=== PATIENT | female | born 1995 | race African-American/Black ===

== ENCOUNTER 2020-12-11 13:32 | Outpatient (REF) | payer OTHER, SELFPAY ==
[2020-12-11 16:36] LABS: MANUAL DIFF FLAG NO
[2020-12-11 16:41] LABS: Basophils Absolute Auto 0.1 X10*3/uL (0.0-0.2); Eosinophils Percent Auto 0.6 % (0-4); Hematocrit 34.2 % (37-47); Hemoglobin 10.6 g/dl (12.0-16.0); Imm Gran Abs Auto 0.01 X10*3/uL (0.00-0.03); Imm Gran Pct Auto 0.2 % (0.0-0.4); Lymphocytes Absolute Auto 2.4 X10*3/uL (1.2-4.9); Lymphocytes Percent Auto 45.8 % (20-40); Mean Corpuscular Volume 80.7 fL (80-98); Mean Platelet Volume 10.3 fL (9.4-12.3); Monocytes Absolute Auto 0.6 X10*3/uL (0.1-1.2); Monocytes Percent Auto 12.1 % (2-11); Neutrophils Absolute Auto 2.1 X10*3/uL (2.0-8.3); Neutrophils Percent Auto 40.3 % (45-73); Platelet Count 362 X10*3/uL (160-400); Red Blood Count 4.24 X10*6/uL (4.20-5.50); Red Cell Distribution Width 16.4 % (11.0-16.0); White Blood Count 5.2 X10*3/uL (4.8-10.8)
[2020-12-11 17:22] LABS: TSH reflex Free T4 0.25 uIU/mL (0.32-4.0)
[2020-12-11 17:57] LABS: Free T4 (Free Thyroxine) 1.19 ng/dL (0.71-1.85)
== END 2020-12-11 13:33 | disposition home or self-care (01) ==
LOC: HO.HMGCLDS 13:32
PROVIDERS: PCP Hospitalist; Visit Provider Nurse Practitioner Family
DX: R59.1 Generalized enlarged lymph nodes (principal)
CPT/HCPCS: 36415; 84439; 84443; 85025

== ENCOUNTER 2020-12-17 13:24 | Outpatient (REF) | payer OTHER, SELFPAY ==
--- NOTE | ~2020-12-17 | US_ITS ---
EXAMINATION: US THYROID CLINICAL INFORMATION: Thyrotoxicosis, unspecified without thyrotoxic crisis or storm. COMPARISON: None TECHNIQUE: Linear transducer grayscale and color Doppler examination with attention to the region of the thyroid. FINDINGS: SIZE: Measurements of the thyroid lobes and nodules are given in sagittal, anteroposterior and transverse dimensions respectively. Right Thyroid Lobe: 5.9 x 1.6 x 1.9 cm, volume 9.4 mL. Parenchyma: The gland echotexture is homogeneous. Thyroid vascularity may be slightly increased.. Left Thyroid Lobe: 6.0 x 1.4 x 1.7 cm, volume 7.2 mL. Parenchyma: The gland echotexture is homogeneous. Thyroid vascularity may be slightly increased.. Isthmus: 0.3 cm in maximum AP dimension. No focal thyroid nodule is seen. NODES: There are multiple bilateral cervical lymph nodes adjacent to the thyroid gland, right greater than left. Some lymph nodes are enlarged. Largest right cervical lymph node measures 2 cm in transverse dimension. Largest left cervical lymph node measures 1.5 cm in transverse dimension. Lymph nodes demonstrate normal ultrasound morphology and flow. US/US thyroid IMPRESSION: Slightly enlarged right lobe. No focal nodule seen. Bilateral cervical lymphadenopathy, right greater than left.
== END 2020-12-17 13:25 | disposition home or self-care (01) ==
LOC: HO.HMGCX 13:24
PROVIDERS: PCP Hospitalist; Visit Provider Nurse Practitioner Family
DX: E05.90 Thyrotoxicosis, unspecified without thyrotoxic crisis or storm (principal); R59.1 Generalized enlarged lymph nodes
CPT/HCPCS: 76536

== ENCOUNTER 2021-01-15 10:23 | Outpatient (REF) | payer OTHER, SELFPAY ==
[2021-01-15 11:49] LABS: TSH reflex Free T4 0.14 uIU/mL (0.32-4.0)
[2021-01-15 12:25] LABS: Free T4 (Free Thyroxine) 0.89 ng/dL (0.71-1.85)
== END 2021-01-15 10:24 | disposition home or self-care (01) ==
LOC: HO.WFDLDS 10:23
PROVIDERS: Visit Provider Hospitalist
DX: R53.83 Other fatigue (principal)
CPT/HCPCS: 36415; 84439; 84443

== ENCOUNTER → 2021-03-05 12:52 | Outpatient (BNVA) | payer OTHER, SELFPAY | PROVIDERS: PCP Hospitalist; Visit Provider Internal Medicine ==

== ENCOUNTER 2021-03-09 10:55 | Outpatient (REF) | payer OTHER, SELFPAY ==
--- NOTE | ~2021-03-09 | US_ITS ---
EXAMINATION: US SOFT TISSUE NECK CLINICAL INFORMATION: Localized enlarged lymph nodes. COMPARISON: Ultrasound soft tissue head/neck thyroid dated 12/17/2020. TECHNIQUE: Ultrasound of the neck soft tissues is performed with high- frequency blanco-scale imaging and color Doppler. FINDINGS: THYROID BED: Prior thyroidectomy. No residual thyroid tissue demonstrated in the thyroid bed. No cystic or solid nodules demonstrated in the thyroid bed. RIGHT NECK SOFT TISSUES: Scattered architecturally normal nodes are present. The nodes show normal fatty hilus, normal cortical thickness, and no cystic change or calcification. No abnormal color flow. The largest nodes are as follows: Level 2: 0.62 x 0.21 x 0.60 cm cm. Normal hailey architecture. Level 1B: 2.2 x 0.72 x 1.2 cm. Normal hailey architecture. Previously it measured 2.5 x 0.84 x 1.9 cm. Level 1B: 1.5 x 0.61 x 1.93 cm. Normal hailey architecture. Previously it measured 2.5 x 0.45 x 2.1 cm. Level 1B: 1.5 x 0.48 x 1.2 cm. Normal hailey architecture. Previously not visualized. LEFT NECK SOFT TISSUES: Scattered architecturally normal nodes are present. The nodes show normal fatty hilus, normal cortical thickness, and no cystic change or calcification. No abnormal color flow. The largest nodes are as follows: Level 5A: 1.0 x 0.21 x 0.90 cm. Normal hailey architecture. Level 4: 0.92 x 0.35 x 0.49 cm. Normal hailey architecture. The previously identified enlarged left level 3 lymph node on December 2020 exam is no longer seen. US/US soft tiss head and/or neck IMPRESSION: Bilateral cervical lymphadenopathy, overall decreased from December 2020. There are 3 enlarged right level 1B cervical lymph nodes. Two are seen on prior exam December 2020 and are decreased in size. There third is not appreciated on prior exam and cannot be compared. No enlarged left cervical lymph nodes. The previously identified enlarged left level 3 lymph node on December 2020 exam is no longer seen.
[2021-03-09 14:26] LABS: Hemoglobin 10.5 g/dl (12.0-16.0); Mean Corpuscular HGB Conc 30.9 g/dl (31.0-35.0); Mean Corpuscular Hemoglobin 24.3 pg (27.0-33.0); Mean Corpuscular Volume 78.7 fL (80-98); Mean Platelet Volume 10.3 fL (9.4-12.3); Platelet Count 229 X10*3/uL (160-400); Red Blood Count 4.32 X10*6/uL (4.20-5.50); Red Cell Distribution Width 17.8 % (11.0-16.0); White Blood Count 5.4 X10*3/uL (4.8-10.8)
[2021-03-09 15:04] LABS: Free T4 (Free Thyroxine) 0.93 ng/dL (0.71-1.85); Thyroid Stimulating Hormone 0.09 uIU/mL (0.32-4.0); Vitamin D 25-OH Total 10.4 ng/mL (>30)
[2021-03-10 05:36] LABS: Triiodothyronine T3 Total 83 ng/dL (76-181)
[2021-03-10 06:27] LABS: Thyroglobulin Antibodies <1 IU/mL (< or = 1); Thyroid Peroxidase Antibodies 1 IU/mL (<9)
[2021-03-12 19:47] LABS: Thyrotropin Receptor Antibody <1.00 IU/L (<=2.00)
[2021-03-13 15:57] LABS: Thyroid Stimulating Immunoglob <89 % baseline (<140)
== END 2021-03-09 10:56 | disposition home or self-care (01) ==
LOC: HO.HMGCX 10:55
PROVIDERS: PCP Hospitalist; Visit Provider Internal Medicine
DX: Z00.00 Encounter for general adult medical examination without abnormal findings (principal); E05.90 Thyrotoxicosis, unspecified without thyrotoxic crisis or storm; E55.9 Vitamin D deficiency, unspecified; D64.9 Anemia, unspecified; R59.0 Localized enlarged lymph nodes
CPT/HCPCS: 36415; 76536; 82306; 83520; 84439; 84443; 84445; 84480; 85027; 86376; 86800

== ENCOUNTER → 2021-09-10 07:41 | Outpatient (BNVA) | payer OTHER, SELFPAY | PROVIDERS: PCP Hospitalist; Visit Provider Internal Medicine ==

== ENCOUNTER 2021-09-11 12:01 | Outpatient (REF) | payer OTHER, SELFPAY ==
[2021-09-11 16:21] LABS: Free T4 (Free Thyroxine) 0.94 ng/dL (0.71-1.85); Thyroid Stimulating Hormone 0.12 uIU/mL (0.32-4.0)
[2021-09-13 14:17] LABS: Triiodothyronine T3 Total 100 ng/dL (76-181)
== END 2021-09-11 12:02 | disposition home or self-care (01) ==
LOC: HO.HMGCLDS 12:01
PROVIDERS: PCP Hospitalist; Visit Provider Internal Medicine
DX: E05.90 Thyrotoxicosis, unspecified without thyrotoxic crisis or storm (principal)
CPT/HCPCS: 36415; 84439; 84443; 84480

== ENCOUNTER 2021-09-30 10:06 | Outpatient (REF) | payer OTHER, SELFPAY ==
--- NOTE | ~2021-09-30 | US_ITS ---
EXAMINATION: US THYROID CLINICAL INFORMATION: Hyperthyroidism. Thyrotoxicosis. COMPARISON: Ultrasound thyroid 12/17/2020. TECHNIQUE: Linear and curved transducer grayscale and color Doppler examination with attention to the region of the thyroid. FINDINGS: SIZE: Measurements of the thyroid lobes and nodules are given in sagittal, anteroposterior and transverse dimensions respectively. Right Thyroid Lobe: 6.3 x 1.7 x 2.4 cm, volume 13.4 mL. Previously 5.9 x 1.6 x 1.9 cm, volume 9.4 mL. Parenchyma: The gland echotexture is homogeneous. Thyroid vascularity is increased. Left Thyroid Lobe: 5.3 x 1.2 x 2.3 cm, volume 7.6 mL. Previously 6.0 x 1.4 x 1.7 cm, volume 7.2 mL. Parenchyma: The gland echotexture is homogeneous. Thyroid vascularity is increased. Isthmus: 0.3 cm in maximum AP dimension. Previously 0.31 cm. Estimated total number of nodules greater than or equal to 1 cm: 0. 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 Location: Left mid. Size: 0.2 x 0.2 x 0.3 cm, volume 0.007 mL. Previously: New Nodule characteristics: Composition: Cystic(0). Echogenicity: Shape: Margins: Echogenic Foci: ACR TI-RADS total points: 0 ACR TI-RADS category: 1 NODES: No lymphadenopathy is seen in the tissue surrounding the thyroid gland. US/US thyroid IMPRESSION: Enlarged hypervascular right lobe and upper normal-size hypervascular left lobe. Lymphadenopathy no longer seen. ACR TI-RADS RECOMMENDATION REFERENCE: Ultrasound-guided fine-needle aspiration, followup ultrasound, no further follow up. * TR1 (0 point) and TR 2 (2 points): No FNA or follow up * TR3 (3 points): FNA if more than or equal to 2.5 cm in maximum dimension, followup ultrasound in 1, 3 and 5 years if 1.5 to 2.4 cm in maximum dimension. * TR4 (4-6 points): FNA if more than or equal to 1.5 cm in maximum dimension, followup ultrasound in 1, 2, 3 and 5 years if 1 to 1.4 cm in maximum dimension. * TR5 (more than or equal to 7 points): FNA if more than or equal to 1 cm in maximum dimension, followup ultrasound every year for 5 years if 0.5 to 0.9 cm in maximum dimension. * TR3, TR4 or TR5 nodules that are below the size threshold for follow up receive no follow up.
== END 2021-09-30 10:07 | disposition home or self-care (01) ==
LOC: HO.US 10:06
PROVIDERS: PCP Hospitalist; Visit Provider Dermatology MOHS-Micrographic Surgery
DX: E05.90 Thyrotoxicosis, unspecified without thyrotoxic crisis or storm (principal)
CPT/HCPCS: 76536

== ENCOUNTER → 2021-11-04 09:06 | Outpatient (BNVA) | payer OTHER, SELFPAY | PROVIDERS: PCP Hospitalist; Visit Provider Internal Medicine ==

== ENCOUNTER → 2021-12-09 10:14 | Outpatient (REF) | payer OTHER, SELFPAY ==
--- NOTE | ~2021-12-09 | NM_ITS ---
EXAMINATION: THYROID UPTAKE AND SCAN CLINICAL INFORMATION: Thyrotoxicosis. COMPARISON: No previous radionuclide thyroid scan is available for comparison. Thyroid ultrasound dated 09/30/2021 is available for comparison. TECHNIQUE: Following the oral administration of 277 microcuries of I-123 sodium iodide, thyroid uptake was performed and expressed as a percentage of the administrated dose. Gamma scintillation camera images of the thyroid in the anterior and right and left anterior oblique views were obtained using a pinhole collimator following the administration of 10 mCi Tc-99m pertechnetate. FINDINGS: The uptake is 14.0% at 2 hours and 39.1% at 24 hours (Normal radioiodine uptake at 24 hours is 10% to 30%). The radioiodine uptake is mildly elevated. The radiopertechnetate thyroid scintigram demonstrates the thyroid gland to be top normal and normal in size, shape, and position. There is homogeneous distribution of activity within the the gland with no focal abnormalities noted. The trapping function appears mildly increased diffusely. A faint midline pyramidal lobe is visualized. A single anterior radioiodine image obtained at the time of the 24-hour uptake is similar to the radio pertechnetate image. The thyroid ultrasound dated 09/30/2021 Very small subcentimeter nodule in the mid left lobe. This nodule measures 0.3 cm in largest dimension, and is much too small to be resolved on these radionuclide images and is not visualized. NM/NM thyroid w uptake IMPRESSION: Mildly elevated radioiodine uptake. Other than mildly increased trapping function diffusely, the thyroid scan appears normal. In the clinical setting of thyrotoxicosis, these findings are compatible with Graves' disease. No nodules are visualized.
== END ==
LOC: HO.NUCMED 10:14
PROVIDERS: Visit Provider Internal Medicine
DX: E05.90 Thyrotoxicosis, unspecified without thyrotoxic crisis or storm (principal)
CPT/HCPCS: 78014; A9512; A9516

== ENCOUNTER 2022-12-29 14:29 | Outpatient (REF) | payer OTHER, SELFPAY ==
[2022-12-29 18:37] LABS: Thyroid Stimulating Hormone 0.12 uIU/mL (0.32-4.0)
[2022-12-31 08:32] LABS: Triiodothyronine T3 Total 109 ng/dL (76-181)
== END 2022-12-29 14:30 | disposition home or self-care (01) ==
LOC: HO.HMGCLDS 14:29
PROVIDERS: Visit Provider Internal Medicine
DX: E05.90 Thyrotoxicosis, unspecified without thyrotoxic crisis or storm (principal)
CPT/HCPCS: 36415; 84439; 84443; 84480

== ENCOUNTER → 2022-12-30 12:58 | Outpatient (BNVA) | payer OTHER, SELFPAY | PROVIDERS: PCP Hospitalist; Visit Provider Internal Medicine | DX: E05.90 Thyrotoxicosis, unspecified without thyrotoxic crisis or storm (principal); R53.83 Other fatigue; R00.2 Palpitations; E55.9 Vitamin D deficiency, unspecified; F41.9 Anxiety disorder, unspecified | CPT/HCPCS: 99212 ==

== ENCOUNTER 2024-05-11 08:41 | Outpatient (REF) | payer OTHER, SELFPAY ==
[2024-05-11 11:07] LABS: Free T4 (Free Thyroxine) 0.92 ng/dL (0.71-1.85); Thyroid Stimulating Hormone 0.13 uIU/mL (0.32-4.0); Vitamin D 25-OH Total 26.2 ng/mL (>30)
[2024-05-12 10:28] LABS: Triiodothyronine T3 Free 3.1 pg/mL (2.3-4.2)
== END 2024-05-11 08:42 | disposition home or self-care (01) ==
LOC: HO.HMGCLDS 08:41
PROVIDERS: PCP Hospitalist; Visit Provider Internal Medicine Endocrinology, Diabetes & Metabolism
DX: E55.9 Vitamin D deficiency, unspecified (principal); E05.90 Thyrotoxicosis, unspecified without thyrotoxic crisis or storm
CPT/HCPCS: 36415; 82306; 84439; 84443; 84481

== ENCOUNTER 2024-05-29 14:45 | Outpatient (AMB) | payer OTHER, SELFPAY ==
[2024-05-29 14:46] VITALS: BP 88/62; PULSE 77; BMI 17.7
--- NOTE | 2024-05-29 14:46 | A.OFFVIS_ITS ---
Vital Signs 05/29/24 14:46 Height 5 ft 7 in Weight 113 lb 5.082 oz BMI 17.7 BP 88/62 L Blood Pressure Location Lt brachial Position Sitting Pulse 77 Pulse Source Pulse Oximeter Intake Visit Reasons: Hyperthydroidism-vm not set up Intake Note: Patient present today for Hyperthyroidism follow up visit. Bathing Suit Maker Required: No Accompanied by: Self / Same As Patient Allergies gluten Adverse Reaction (Intermediate, Verified 12/30/22 13:17) stomach upset, diarrhea, gas HPI Comments Details: 29 YO F with PMHx Hyperthyroidism who is seen in F/U for hyperthyroidism. Had labs due to fatigue, which revealed TSH slightly below goal with normal FT4. She was subsequently referred to Endocrinology. After our initial visit we ordered a full set of TFTs as well as a thyroid uptake and scan. Labs revealed subclinical hyperthyroidism with low TSH, but FT4 and TT3 WNL. All antibodies were negative. She was then lost to F/U, but reestablished care in late 2020. Thyroid uptake and scan revealed mildly elevated 24 hour uptake of 39.1% with increased trapping. She does report some tenderness in the neck. Currently denies any dysphagia or hoarseness of voice. She does report fatigue, anxiety and palpitations. Denies any recent viral illness or any recent CT scans with contrast. Thyroid US: 09/30/2021 Right Thyroid Lobe: 6.3 x 1.7 x 2.4 cm, volume 13.4 mL. Previously 5.9 x 1.6 x 1.9 cm, volume 9.4 mL. Parenchyma: The gland echotexture is homogeneous. Thyroid vascularity is increased. Left Thyroid Lobe: 5.3 x 1.2 x 2.3 cm, volume 7.6 mL. Previously 6.0 x 1.4 x 1.7 cm, volume 7.2 mL. Parenchyma: The gland echotexture is homogeneous. Thyroid vascularity is increased. Isthmus: 0.3 cm in maximum AP dimension. Previously 0.31 cm. Estimated total number of nodules greater than or equal to 1 cm: 0. 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 Location: Left mid. ?? ? Size: 0.2 x 0.2 x 0.3 cm, volume 0.007 mL. ?? ? Previously: New ?? ? Nodule characteristics: ?? ? Composition: Cystic(0). ?? ? Echogenicity: ?? ? Shape: ?? ? Margins: ?? ? Echogenic Foci: ?? ? ACR TI-RADS total points: 0 ?? ? ACR TI-RADS category: 1 ?? ? NODES: No lymphadenopathy is seen in the tissue surrounding the thyroid gland. Thyroid Uptake and Scan: 12/10/2021 FINDINGS: The uptake is 14.0% at 2 hours and 39.1% at 24 hours (Normal radioiodine uptake at 24 hours is 10% to 30%). The radioiodine uptake is mildly elevated. The radiopertechnetate thyroid scintigram demonstrates the thyroid gland to be top normal and normal in size, shape, and position. There is homogeneous distribution of activity within the the gland with no focal abnormalities noted. The trapping function appears mildly increased diffusely. A faint midline pyramidal lobe is visualized. A single anterior radioiodine image obtained at the time of the 24-hour uptake is similar to the radio pertechnetate image. The thyroid ultrasound dated 09/30/2021 Very small subcentimeter nodule in the mid left lobe. This nodule measures 0.3 cm in largest dimension, and is much too small to be resolved on these radionuclide images and is not visualized. Labs: Laboratory Tests 09/11/21 12/29/22 12:06 14:46 Total T3 100 TSH 0.12 L Free T4 1.10 Feels fatigued for 1 yr. No heart palpitations . Occasional tremors PFSH Medical History Cervical lymphadenopathy Hyperthyroidism Vitamin D deficiency Surgical History Hx of tooth extraction Hx of hernia repair History of Mauricio fundoplication Family History Mother Alive and well Father Alive and well Paternal Aunt Hypothyroidism Paternal Grandmother Hypothyroidism Social History Housing: House Alcohol intake: former Year quit: 2019 Cigarette Packs Per Day: 1 Years Smoked: 1 year Substance Use Type: Marijuana service: No Physical Exam Vital Signs: Last Vital Signs Pulse 77 05/29/24 14:46 BP 88/62 L 05/29/24 14:46 BMI result Body Mass Index 17.7 Assessment & Plan Assessment & Plan (1) Hyperthyroidism: Code(s): E0.90 - Thyrotoxicosis, unspecified without thyrotoxic crisis or storm Category: Medical Plan: This is a 29-year-old black female with a history of suppressed TSH. Possible etiologies include physiologic low TSH versus mild Graves disease antibody negative. There is a family history of Graves disease making antibody negative Graves disease more likely. The patient somewhat symptomatic over the last several years with suppressed TSH. After careful discussion with the patient regarding options, we decide to start a trial of low-dose methimazole 2.5 mg. I went over the side effects of methimazole including but not limited to risk of skin rash, joint pains and rare risk of agranulocytosis. Will recheck thyroid function studies, liver panel and CBC in 4 weeks time. Orders: Orders Free T4 (Free Thyroxine) 4 Weeks E05.90 - Thyrotoxicosis, unspecified without thyrotoxic crisis or storm Thyroid Stimulating Hormone 4 Weeks E05.90 - Thyrotoxicosis, unspecified wi thout thyrotoxic crisis or storm Complete Blood Count Auto Diff 4 Weeks E05.90 - Thyrotoxicosis, unspecified without thyrotoxic crisis or storm Triiodothyronine T3 Free 4 Weeks E05.90 - Thyrotoxicosis, unspecified without thyrotoxic crisis or storm Liver Panel Today E05.90 - Thyrotoxicosis, unspecified without thyrotoxic crisis or storm Medications: New methimazole 2.5 mg (1/2 x 5 mg) PO DAILY 14 tabs 5RF Coding Level of Care Code Est Pt Level 3 (16001) Diagnoses Hyperthyroidism E05.90
== END 2024-05-29 15:33 | disposition home or self-care (01) ==
PROVIDERS: PCP Hospitalist; Visit Provider Internal Medicine Endocrinology, Diabetes & Metabolism
DX: E05.90 Thyrotoxicosis, unspecified without thyrotoxic crisis or storm (principal)
CPT/HCPCS: 99213

== ENCOUNTER → 2024-05-29 14:45 | Outpatient (BNVA) | payer OTHER, SELFPAY | PROVIDERS: PCP Hospitalist; Visit Provider Internal Medicine Endocrinology, Diabetes & Metabolism | DX: E05.90 Thyrotoxicosis, unspecified without thyrotoxic crisis or storm (principal) | CPT/HCPCS: 99212 ==

== ENCOUNTER 2024-08-31 13:48 | Outpatient (AMB) | payer OTHER, SELFPAY ==
[2024-08-31 14:07] VITALS: BP 110/60; PULSE 89; O2SAT 99; BMI 17.1
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
== END 2024-08-31 14:58 | disposition home or self-care (01) ==
DX: Z00.00 Encounter for general adult medical examination without abnormal findings (principal); M25.511 Pain in right shoulder; H61.23 Impacted cerumen, bilateral; F17.210 Nicotine dependence, cigarettes, uncomplicated; F32.A Depression, unspecified; K90.0 Celiac disease; E05.90 Thyrotoxicosis, unspecified without thyrotoxic crisis or storm

== ENCOUNTER → 2024-08-31 13:48 | Outpatient (BNVA) | payer OTHER, SELFPAY | DX: Z00.01 Encounter for general adult medical examination with abnormal findings (principal); Z23 Encounter for immunization; M25.511 Pain in right shoulder; F32.A Depression, unspecified; K90.0 Celiac disease; E05.90 Thyrotoxicosis, unspecified without thyrotoxic crisis or storm; H61.20 Impacted cerumen, unspecified ear | CPT/HCPCS: 90471; 90715; 96127; 99212; 99395 ==

== ENCOUNTER 2024-09-14 14:36 | Outpatient (AMB) | payer OTHER, SELFPAY ==
[2024-09-14 14:40] VITALS: BP 110/64; PULSE 99; O2SAT 96; BMI 17.2
--- NOTE | 2024-09-14 14:40 | A.OFFPC_ITS ---
Vital Signs 09/14/24 14:40 Height 5 ft 7 in Weight 110 lb BMI 17.2 BP 110/64 Blood Pressure Location Lt brachial Position Sitting Pulse 99 Pulse Source Pulse Oximeter Pulse Oximetry (%) 96 Oxygen Delivery Method Room Air Intake Visit Reasons: ear flushing - pt convenience Allergies gluten Adverse Reaction (Intermediate, Verified 09/14/24 14:43) stomach upset, diarrhea, gas Tobacco use date assessed: 08/31/24 Dental Screening Dental Screen Date: 08/31/24 HPI ear flushing - pt convenience HPI Details 29-year-old female coming to the office for ear flushing. PFSH Medical History Cervical lymphadenopathy Vitamin D deficiency Hyperthyroidism Surgical History Hx of tooth extraction Hx of hernia repair History of Mauricio fundoplication Family History Mother Alive and well Father Alive and well Paternal Aunt Hypothyroidism Paternal Grandmother Hypothyroidism Social History Housing: House Alcohol intake: former Year quit: 2019 Patient Tobacco Use Status: Current everyday Tobacco user Cigarette Packs Per Day: 1 Years Smoked: 1 year e-Cigarette/Vaping Use: Never Used Substance Use Type: Marijuana service: No Current occupational status: employed Cognitive needs: No Hearing needs: No Vision needs: No Questionnaire Thrive Questionnaire Date Thrive assessed: 08/10/24 I am a: Patient What is your living situation today?: I have a steady place to live Within the past 12 months, did the food you bought not last and you didn't have the money to get more?: Never true Within the past 12 months, did you worry whether your food would run out before you got money to buy more?: Never true Do you have trouble paying for medicines?: No Do you have trouble getting transportation to medical appointments?: Yes Do you have trouble paying your heating and electricity bill?: No Do you have trouble taking care of your child, family member or friend?: No Do you have trouble with day-to-day activities such as bathing, preparing meals, shopping, managing finances, etc.?: Yes Are you currently unemployed and looking for a job?: No Are you interested in more education?: No Please select the resources that you would like help with: Daily support THRIVE Score: 1 AUDIT C Alcohol Use Questionnaire (AUDIT-C) 1. How often do you have a drink containing alcohol?: Never 3. How often do you have six or more drinks on one occasion?: Never Total Score: 0 GISSELLE-7 AMB Questionnaire GISSELLE-7 Date GISSELLE - 7 assessed: 08/31/24 Source: Developed by Drs. Ray Shine, Tamiko Renee, Reji Shrestha and colleagues, with an educational sal from [employer]. Review of Systems ENT Details: Decreased hearing and clogged ear feeling Card Reports no additional complaints Resp Reports no additional complaints GI Reports no additional complaints Physical exam (Primary Care) BMI result Body Mass Index 17.2 Tobacco/Smoking Status: Tobacco use Status Tobacco use date assessed 08/31/24 08/31/24 14:09 Patient Tobacco Use Status Current everyday Tobacco 08/31/24 14:09 e-Cigarette/Vaping Use Never Used 08/31/24 14:09 Thrive Assessment: Date of Thrive Assessment Date Thrive assessed 08/10/24 09/10/24 13:29 Const General: cooperative, healthy appearing, comfortable and no acute distress HENMT Head: Yes normocephalic Ears: hearing grossly normal bilaterally and Abnormal EAC present cerumen impaction bilateral General nose exam: Normal external nose present Resp Effort & Inspection: normal respiratory effort Extrem General: Yes normal to inspection, Yes full ROM and No edema Psych Affect: normal affect Attitude: cooperative Insight: Good insight present (Psych) Judgement: Good judgement present (Psych) Coding Level of Care Code Est Pt Level 3 (38445) Diagnoses Cerumen impaction H61.20 Assessment & Plan Assessment & Plan (1) Cerumen impaction: Code(s): H61.20 - Impacted cerumen, unspecified ear Category: Medical Plan: Cerumen was successfully removed with lighted curette and irrigation. Ear canals were clear and TM was visualized as intact with well aerated middle ear spaces. Advised patient to continue using Debrox as needed for excessive wax and follow up as needed for this concern. Plan This note was constructed using voice recognition software. While every effort has been made to ensure accuracy and soa integration developer, still areas may have been included sometimes these areas may affect the content or meeting of the given symptoms. Total time spent caring for the patient today was 25 minutes. This includes time spent before the visit reviewing the chart, time spent during the visit, and time spent after the visit and documentation.
== END 2024-09-14 15:04 | disposition home or self-care (01) ==
DX: H61.23 Impacted cerumen, bilateral (principal)

== ENCOUNTER → 2024-09-14 14:36 | Outpatient (BNVA) | payer OTHER, SELFPAY | DX: H61.23 Impacted cerumen, bilateral (principal) | CPT/HCPCS: 99212 ==

== ENCOUNTER 2024-10-18 08:57 | Outpatient (REF) | payer OTHER, SELFPAY ==
[2024-10-18 13:20] LABS: MANUAL DIFF FLAG NO
[2024-10-18 13:25] LABS: Basophils Absolute Auto 0.1 X10*3/uL (0.0-0.2); Basophils Percent Auto 1.1 % (0-2); Eosinophils Absolute Auto 0.3 X10*3/uL (0.0-0.4); Eosinophils Percent Auto 3.7 % (0-4); Hematocrit 33.7 % (37.0-47.0); Hemoglobin 10.7 g/dl (12.0-16.0); Imm Gran Abs Auto 0.02 X10*3/uL (0.00-0.03); Imm Gran Pct Auto 0.3 % (0.0-0.4); Lymphocytes Absolute Auto 2.5 X10*3/uL (1.2-4.9); Lymphocytes Percent Auto 36.2 % (20-40); Mean Corpuscular HGB Conc 31.8 g/dl (31.0-35.0); Mean Corpuscular Hemoglobin 25.2 pg (27.0-33.0); Mean Corpuscular Volume 79.5 fL (80.0-98.0); Mean Platelet Volume 10.2 fL (9.4-12.3); Monocytes Absolute Auto 0.6 X10*3/uL (0.1-1.2); Neutrophils Absolute Auto 3.5 x10*3/uL (2.0-8.3); Neutrophils Percent Auto 49.7 % (45-73); Platelet Count 279 X10*3/uL (160-400); Red Blood Count 4.24 X10*6/uL (4.20-5.50); Red Cell Distribution Width 18.3 % (11.0-16.0)
[2024-10-18 13:54] LABS: Alanine Aminotransferase 14 U/L (0-31); Albumin Level 4.3 g/dL (3.5-5.0); Alkaline Phosphatase 44 U/L (39-117); Anion Gap 10 (12-20); Aspartate Amino Transferase 19 U/L (5-31); Bilirubin Total 0.2 mg/dL (0.0-1.0); Blood Urea Nitrogen 11 mg/dL (9-16); Calcium 9.3 mg/dL (8.4-10.2); Carbon Dioxide 25 mmol/L (22-29); Chloride 108 mmol/L (96-108); Estimated Glomerular Filt Rate > 60; Glucose Random 85 mg/dL (60-115); Potassium 4.1 mmol/L (3.3-5.1); Sodium 139 mmol/L (135-145); Total Protein 7.6 g/dL (6.5-8.0)
[2024-10-18 14:11] LABS: Free T4 (Free Thyroxine) 1.02 ng/dL (0.71-1.85); TSH reflex Free T4 0.51 uIU/mL (0.32-4.0)
[2024-10-18 14:16] LABS: Vitamin B12 766 pg/mL (200-900)
[2024-10-22 16:30] LABS: Vitamin D 25-OH, D2 <4 ng/mL; Vitamin D 25-OH, D3 12 ng/mL; Vitamin D 25-OH, Total 12 ng/mL (30-100)
== END 2024-10-18 08:58 | disposition home or self-care (01) ==
LOC: HO.HMGCX 08:57
PROVIDERS: PCP Internal Medicine
DX: Z00.00 Encounter for general adult medical examination without abnormal findings (principal); M25.511 Pain in right shoulder
CPT/HCPCS: 36415; 73030; 80053; 82306; 82607; 82746; 84439; 84443; 85025

== ENCOUNTER 2025-03-08 10:10 | Outpatient (AMB) | payer OTHER, SELFPAY ==
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
[2025-03-08 10:21] VITALS: BMI 18.2
--- OUTSIDE RECORDS SUMMARY | 2025-03-08 11:10 | XMS_ITS | Clinical Summary ---
Author Organization Patient Business Ser [facility] Address [address] [place] [address] Care Team Providers Care Gold Marker Name Role Phone Bethany Rose MD Primary Care Provider [phone] Surgical History Surgery Date Site/Laterality Comments OTHER SURGICAL HISTORY PROCEDURE: HISTORICAL UNSPECIFIED SURGERY; COMMENT: gastric surgery as an /child- sever reflux Medical History Medical History Date Comments Marijuana use 06/06/2013 DX:Marijuana use Family History Medical History Relation Name Comments Asthma Aunt 1 Other cancer Aunt 2 bone ca Diabetes Maternal Grandfather Other cancer Maternal Grandmother stomach Arthritis Other 1 Glaucoma Other 2 mat. side Glaucoma Other 3 pat. side Hypertension Other 4 pat. side Asthma Uncle 1 Diabetes Uncle 2 Relation Name Status Comments Aunt 1 Aunt 2 Aunt 3 Brother 1 Alive Brother 2 Alive Brother 3 Alive 1/2 dad side Father Alive Maternal Grandfather Maternal Grandmother Mother Alive Other 1 Other 2 Other 3 Other 4 Other 5 Uncle 1 Uncle 2 Uncle 3 Social History Tobacco Use Types Packs/Day Years Used Date Smoking Tobacco: Never Smokeless Tobacco: Never Alcohol Use Standard Drinks/Week Comments No 0 (1 standard drink = 0.6 oz pur e alcohol) Comments Unknown Sex and Gender Information Value Date Recorded Sex Assigned at Female 05/24/2024 4:14 PM EDT Legal Sex Female 10:24 PM EST Gender Identity Female 05/24/2024 4:14 PM EDT Sexual Orientation Straight 05/24/2024 4: 14 PM EDT Obstetrics History Plan of Treatment Health Maintenance Due Date Last Done Comments Cervical Cancer Screening: Pap Smear 2015 DTaP,Tdap,and Td Vaccines (8 - Td or Tdap) 10/18/2023 10/18/2013, 10/04/2006, 05/26/1998, Additional history exists Depression Screening 05/24/2024 HIV Screening 05/24/2024 Hepatitis C Screening 05/24/2024 Social Influencers of Health Screening 05/24/2024 COVID-19 Vaccine ( season) 2024 Influenza Vaccine (Season Ended) 2025 07/23/2009 Hepatitis B Vaccines Completed 1994, 1994, 1994 HIB Vaccines Completed 10/03/1995, 12/08, 1994, Additional history exists IPV Vaccines Completed 05/26/1998, 10/07, 10/03/1995, Additional history exists MMR Vaccines Completed 07/29/1999, 10/03/1995 Meningococcal ACWY Vaccine Aged Out 03/07/2008 N o longer eligible based on patient's age to complete this topic Varicella Vaccines Completed 07/23/2009, 05/26/1998 HPV Vaccines Completed 12/30/2009, 07/08, 03/07/2008 Hepatitis A Vaccines Aged Out No long er eligible based on patient's age to complete this topic Meningococcal B Vaccine Aged Out No l onger eligible based on patient's age to complete this topic Pneumococcal Vaccine: Pediatrics (0 to 5 Years) and At-Risk Patients (6 to 64 Years) Aged Out No longer eligible based on patient's age to complete this topic RSV Immunization Patients Under 20 months Aged Out No longer eligible based on patient's age to complete this topic Care Teams Gold Marker Relationship Specialty [place] [address] [place] [id number] PCP - General 06/20/09
== END 2025-03-08 11:22 | disposition home or self-care (01) ==
LOC: HO.HOS 10:11
PROVIDERS: PCP Internal Medicine; Visit Provider Physician Assistant
DX: M54.2 Cervicalgia (principal); M79.18 Myalgia, other site
CPT/HCPCS: 99203

== ENCOUNTER → 2025-03-08 10:10 | Outpatient (BNVA) | payer OTHER, SELFPAY | PROVIDERS: PCP Internal Medicine; Visit Provider Physician Assistant | DX: M54.2 Cervicalgia (principal); M79.18 Myalgia, other site | CPT/HCPCS: 99202 ==

== ENCOUNTER 2025-05-23 11:41 | Outpatient (AMB) | payer OTHER, SELFPAY ==
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
[2025-05-23 12:06] VITALS: BMI 18.2
--- OUTSIDE RECORDS SUMMARY | 2025-05-23 12:34 | XMS_ITS | Clinical Summary ---
Author Organization Patient Business Ser [facility] Address [address] [place] [address] Care Team Providers Care Physician Practice Coordinator Name Role Phone Bethany Rose MD Primary Care Provider [phone] Surgical History Surgery Date Site/Laterality Comments OTHER [...] COVID-19 Vaccine ( season) 2024 Influenza Vaccine (#1) 2025 07/23/2009 Hepatitis B Vaccines Completed 1994, [...] 5 Years) and At-Risk Patients (6 to 49 Years) Aged Out No longer eligible based on patient's age to complete this topic RSV Immunization Patients Under 20 months Aged Out No longer eligible based on patient's age to complete this topic Care Teams Physician Practice Coordinator Relationship Specialty [place] [address] [place] [id number] PCP - General 06/20/09
== END 2025-05-23 12:28 | disposition home or self-care (01) ==
LOC: HO.HOS 11:42
PROVIDERS: PCP Internal Medicine; Visit Provider Physical Medicine & Rehabilitation
DX: M79.18 Myalgia, other site (principal)
CPT/HCPCS: 99204

== ENCOUNTER → 2025-05-23 11:41 | Outpatient (BNVA) | payer OTHER, SELFPAY | PROVIDERS: PCP Internal Medicine; Visit Provider Physical Medicine & Rehabilitation | DX: M79.18 Myalgia, other site (principal) | CPT/HCPCS: 99202 ==

== ENCOUNTER 2025-06-14 11:24 | Outpatient (AMB) | payer OTHER, SELFPAY ==
--- OUTSIDE RECORDS SUMMARY | 2025-06-14 11:27 | XMS_ITS | Clinical Summary ---
Author Organization Patient Business Ser [facility] Address [address] [place] [address] Care Team Providers Care Band Presser Name Role Phone Bethany Rose MD Primary Care Provider [phone] Surgical History Surgery Date Site/Laterality Comments OTHER [...] 10/18/2023 10/18/2013, 10/04/2006, 05/26/1998, Additional history exists HIV Screening 05/24/2024 Hepatitis C Screening 05/24/2024 Social Influencers of Health Screening 05/24/2024 COVID-19 Vaccine ( season) 2024 Depression Screening 11/07/2024 Influenza Vaccine (#1) 2025 07/23/2009 Hepatitis B [...] age to complete this topic Care Teams Band Presser Relationship Specialty [place] [address] [place] [id number] PCP - General 06/20/09
--- NOTE | 2025-06-14 11:45 | AM.OFFVISNUR ---
Intake Visit Reasons: PPD Plant Allergies gluten Adverse Reaction (Intermediate, Verified 05/23/25 12:06) stomach upset, diarrhea, gas Office Meds tuberculin PPD 5 tub. unit/0.1 mL intradermal injection solution Performing Provider: Khushboo Valle MD [facility] Administered by: Stacey Bender LPN on 06/14/25 11:30 Dose Route Admin Location Dispensed Lot Number Expiration Date [facility] [employer] 0.1 mL intradermal left forearm 0.1 mL [id number] 09/06/27 89853-987-37 [employer] Total Dispensed Waste 0.1 mL 0 % Assessment & Plan Assessment & Plan Orders: Orders AMB PPD Planted Today Z11.1 - Encounter for screening for respiratory tuberculosis Coding
== END 2025-06-14 11:47 | disposition home or self-care (01) ==
LOC: HO.HMCH 11:25
PROVIDERS: PCP Internal Medicine; Visit Provider Internal Medicine
DX: Z11.1 Encounter for screening for respiratory tuberculosis (principal)

== ENCOUNTER → 2025-06-14 11:24 | Outpatient (BNVA) | payer OTHER, SELFPAY | PROVIDERS: PCP Internal Medicine; Visit Provider Internal Medicine | DX: Z11.1 Encounter for screening for respiratory tuberculosis (principal) | CPT/HCPCS: 86580 ==